=== PATIENT | female | born 1990 ===

== ENCOUNTER 2018-11-28 10:08 | Outpatient (CLI) | payer OTHER | END 2018-11-28 10:46 | disposition home or self-care (01) | LOC: LAB 10:08 | DX: A92.8 Other specified mosquito-borne viral fevers (principal); Z11.4 Encounter for screening for human immunodeficiency virus [HIV]; Z34.00 Encounter for supervision of normal first pregnancy, unspecified trimester ==

== ENCOUNTER 2018-11-28 11:06 | Outpatient (CLI) | payer OTHER ==
[2018-12-01] MEDS ORDERED: PRENATABS RX T1 EACH (09:00)
== END 2018-12-02 17:00 | disposition home or self-care (01) ==
LOC: SONOGRAMA 11:06
DX: Z34.00 Encounter for supervision of normal first pregnancy, unspecified trimester (principal)

== ENCOUNTER 2018-12-01 08:55 | Emergency (ER) | payer OTHER ==
[~2018-12-01] VITALS: Ht 160 cm; Wt 68.5 kg
[2018-12-01] MEDS ORDERED: PRENATABS RX T1 EACH (09:00)
== END 2018-12-01 09:41 | disposition home or self-care (01) ==
LOC: ER 08:55
DX: R07.89 Other chest pain (principal)

== ENCOUNTER 2018-12-12 11:26 | Outpatient (CLI) | payer OTHER ==
[~2018-12-12 11:26] MED LIST: PRENATABS RX T1 EACH
== END 2018-12-12 16:01 | disposition home or self-care (01) ==
LOC: SONOGRAMA 11:26
DX: Z34.00 Encounter for supervision of normal first pregnancy, unspecified trimester (principal)

== ENCOUNTER 2018-12-16 07:39 | Inpatient (IN) | payer OTHER ==
[~2018-12-16] VITALS: Ht 157.5 cm; Wt 68.5 kg
== END 2018-12-17 15:33 | disposition home or self-care (01) | DRG 832 ==
LOC: OBS/DEL 07:39 → LDR 08:01
PROVIDERS: ADMIT Specialist
PROC: 10903ZU Drainage of Amniotic Fluid, Diagnostic from Products of Conception, Percutaneous Approach (ICD-10-PCS; principal; 2018-12-16)
PROC: 4A1HXCZ Monitoring of Products of Conception, Cardiac Rate, External Approach (ICD-10-PCS; 2018-12-16)
DX: O36.8120 Decreased fetal movements, second trimester, not applicable or unspecified (principal); J90 Pleural effusion, not elsewhere classified; O40.2XX0 Polyhydramnios, second trimester, not applicable or unspecified; O35.8XX0 Maternal care for other (suspected) fetal abnormality and damage, not applicable or unspecified; O99.012 Anemia complicating pregnancy, second trimester; Z34.02 Encounter for supervision of normal first pregnancy, second trimester

== ENCOUNTER → 2018-12-30 | Outpatient (CLI) | payer OTHER ==
[~2018-12-30] MED LIST changes: +LABETALOL HCL200 MG PO; -PRENATABS RX T1 EACH; +PRENATABS RX T1 EACH PO; +TRANDATE300 MG PO
== END | disposition home or self-care (01) ==
LOC: PRENATAL 14:18
DX: O03.5 Genital tract and pelvic infection following complete or unspecified spontaneous abortion (principal)

== ENCOUNTER 2019-01-06 08:05 | Inpatient (IN) | payer OTHER ==
[~2019-01-06] VITALS: Ht 157.5 cm; Wt 2.3 kg
[~2019-01-06 08:05] MED LIST changes: -LABETALOL HCL200 MG PO; -TRANDATE300 MG PO
[2019-01-13] MEDS ORDERED: TRANDATE300 MG PO (14:02)
[2019-01-13] MEDS ORDERED: LABETALOL HCL200 MG PO (14:04)
== END 2019-01-13 15:25 | disposition home or self-care (01) | DRG 786 ==
LOC: OBS/DEL 08:05 → LDR 08:24 → OB/GYN 08:24 → LDR 14:55 → O/R 01-07 13:38 → OB/GYN 01-07 13:54
PROVIDERS: ADMIT Specialist
PROC: 10903ZC Drainage of Amniotic Fluid, Therapeutic from Products of Conception, Percutaneous Approach (ICD-10-PCS; 2019-01-06)
PROC: 30233N1 Transfusion of Nonautologous Red Blood Cells into Peripheral Vein, Percutaneous Approach (ICD-10-PCS; 2019-01-06)
PROC: 4A1HXCZ Monitoring of Products of Conception, Cardiac Rate, External Approach (ICD-10-PCS; 2019-01-06)
PROC: 10D00Z1 Extraction of Products of Conception, Low, Open Approach (ICD-10-PCS; principal; 2019-01-07 13:30)
PROC: BW4GZZZ Ultrasonography of Pelvic Region (ICD-10-PCS; 2019-01-08)
PROC: BW40ZZZ Ultrasonography of Abdomen (ICD-10-PCS; 2019-01-08)
PROC: BW24Y0Z Computerized Tomography (CT Scan) of Chest and Abdomen using Other Contrast, Unenhanced and Enhanced (ICD-10-PCS; 2019-01-08)
PROC: 3E0F7GC Introduction of Other Therapeutic Substance into Respiratory Tract, Via Natural or Artificial Opening (ICD-10-PCS; 2019-01-08)
PROC: 4A033R1 Measurement of Arterial Saturation, Peripheral, Percutaneous Approach (ICD-10-PCS; 2019-01-08)
PROC: B246ZZZ Ultrasonography of Right and Left Heart (ICD-10-PCS; 2019-01-09)
PROC: CF1C1ZZ Planar Nuclear Medicine Imaging of Hepatobiliary System, All using Technetium 99m (Tc-99m) (ICD-10-PCS; 2019-01-09)
PROC: 8E0ZXY6 Isolation (ICD-10-PCS; 2019-01-10)
DX: O82 Encounter for cesarean delivery without indication (principal); O60.14X0 Preterm labor third trimester with preterm delivery third trimester, not applicable or unspecified; J90 Pleural effusion, not elsewhere classified; J98.11 Atelectasis; R65.10 Systemic inflammatory response syndrome (SIRS) of non-infectious origin without acute organ dysfunction; O40.3XX0 Polyhydramnios, third trimester, not applicable or unspecified; O76 Abnormality in fetal heart rate and rhythm complicating labor and delivery; Z3A.30 30 weeks gestation of pregnancy; Z37.0 Single live birth; F43.21 Adjustment disorder with depressed mood; R09.02 Hypoxemia; O99.013 Anemia complicating pregnancy, third trimester; B96.0 Mycoplasma pneumoniae [M. pneumoniae] as the cause of diseases classified elsewhere

== ENCOUNTER 2024-07-18 05:27 | Day surgery (SDC) | payer OTHER ==
[~2024-07-18 05:27] MED LIST changes: +LABETALOL HCL200 MG PO; +TRANDATE300 MG PO
[2024-07-18] MEDS ORDERED: OXYTOCIN 10 UNITS/ML VIAL IV ONE (09:30)
== END 2024-07-18 15:10 | disposition home or self-care (01) ==
LOC: CIR.AMB 05:27
PROVIDERS: ATTEND Specialist
DX: O02.1 Missed abortion (principal)